=== PATIENT | female | born 1990 | race African-American/Black ===

== ENCOUNTER 2023-03-09 13:01 | Emergency (ER) | payer OTHER ==
[2023-03-09 13:08] VITALS: RESP 20; BMI 28.6
[2023-03-09] MEDS ORDERED: CEPHALEXIN MONOHYDRATE 500 MG CAPSULE (UD) PO ONE (14:44)
[2023-03-09] MEDS ORDERED: SULFAMETHOXAZOLE/TRIMETHOPRIM 800MG/160MG D.S. TABLET PO ONE (14:44)
[2023-03-09] MEDS ORDERED: BACITRACIN 0.9 GM PACKET TP ONE (14:54)
[2023-03-09 14:55] VITALS: BP 118/85; PULSE 77; TEMP 98.4
[2023-03-09] MEDS ORDERED: BACITRACIN ZINC 15 GM TUBE TOPICAL OINTMENT ONE (14:58)
[2023-03-09] MEDS ORDERED: CEPHALEXIN MONOHYDRATE 500 MG CAPSULE (UD) ONE (14:58)
[2023-03-09] MEDS ORDERED: SULFAMETHOXAZOLE/TRIMETHOPRIM 800MG/160MG D.S. TABLET ONE (14:58)
== END 2023-03-09 15:00 | disposition home or self-care (01) ==
LOC: JER 13:01 → JERFT 13:01
PROC: 0H9LXZZ Drainage of Left Lower Leg Skin, External Approach (ICD-10-PCS; principal; 2023-03-09)
DX: L02.416 Cutaneous abscess of left lower limb (principal)
CPT/HCPCS: 99283-25

== ENCOUNTER 2023-04-07 14:22 | Emergency (ER) | payer OTHER ==
[2023-04-07 14:31] VITALS: BP 128/89; PULSE 81; RESP 20; TEMP 98.7; BMI 27.7
== END 2023-04-07 15:38 | disposition home or self-care (01) ==
LOC: JERFT 14:22
DX: H92.03 Otalgia, bilateral (principal); H66.93 Otitis media, unspecified, bilateral
CPT/HCPCS: 99283-25

== ENCOUNTER 2023-07-27 07:44 | Emergency (ER) | payer OTHER ==
[2023-07-27 07:53] VITALS: BP 132/86; PULSE 91; RESP 18; TEMP 98.8; BMI 29.0
[2023-07-27] MEDS ORDERED: ACETAMINOPHEN 325 MG TABLET (FP) ONE (08:39)
[2023-07-27] MEDS ORDERED: KETOROLAC TROMETHAMINE 15 MG/ML VIAL ONE (08:39)
[2023-07-27] MEDS: KETOROLAC TROMETHAMINE 15 MG/ML VIAL IM ONE (08:45)
[2023-07-27] MEDS: ACETAMINOPHEN 500 MG TABLET (FP) PO ONE (08:46)
[2023-07-27] MEDS ORDERED: LIDOCAINE 4% PATCH TP ONE (10:02)
[2023-07-27] MEDS: LIDOCAINE 4% PATCH TP ONE (10:10)
[2023-07-27] MEDS ORDERED: LIDOCAINE PATCH REMOVAL MC SCH (22:00)
== END 2023-07-27 10:51 | disposition home or self-care (01) ==
LOC: JERFT 07:44
PROC: 3E0133Z Introduction of Anti-inflammatory into Subcutaneous Tissue, Percutaneous Approach (ICD-10-PCS; principal; 2023-07-27)
DX: M54.6 Pain in thoracic spine (principal); M54.2 Cervicalgia
CPT/HCPCS: 71046-TC-FY; 99284-25

== ENCOUNTER 2023-09-02 19:48 | Emergency (ER) | payer OTHER ==
[2023-09-02 19:57] VITALS: BP 160/96; PULSE 73; RESP 18; TEMP 98.1; BMI 27.2
[2023-09-02] MEDS ORDERED: CYCLOBENZAPRINE HCL 10 MG TABLET (FP) ONE (21:06)
[2023-09-02] MEDS ORDERED: predniSONE 20 MG TABLET (UD) ONE (21:06)
[2023-09-02] MEDS ORDERED: KETOROLAC TROMETHAMINE 30 MG/1 ML VIAL ONE (21:06)
[2023-09-02] MEDS: KETOROLAC TROMETHAMINE 30 MG/1 ML VIAL IM ONE (21:11)
[2023-09-02] MEDS: predniSONE 20 MG TABLET (UD) PO ONE (21:11)
[2023-09-02] MEDS: CYCLOBENZAPRINE HCL 10 MG TABLET (FP) PO ONE (21:12)
== END 2023-09-02 22:54 | disposition home or self-care (01) ==
LOC: JERFT 19:48
PROC: 3E0133Z Introduction of Anti-inflammatory into Subcutaneous Tissue, Percutaneous Approach (ICD-10-PCS; principal; 2023-09-02)
DX: M54.2 Cervicalgia (principal); M25.512 Pain in left shoulder
CPT/HCPCS: 73030-TC-LT-FY; 99284-25

== ENCOUNTER 2024-01-13 11:11 | Emergency (ER) | payer OTHER ==
[2024-01-13 11:17] VITALS: BP 123/84; PULSE 84; RESP 18; TEMP 97.6; BMI 30.4
[2024-01-13 12:46] LABS: BASO % 0.7 % (0-2.0); EOS % 0.8 % (0-4.5); HEMATOCRIT 37.2 % (32.4-45.2); HEMOGLOBIN 12.1 GM/dL (10.7-15.3); LYMPH % 36.4 % (8-40); MCH 25.9 pg (25.7-33.7); MCHC 32.6 g/dl (32.0-36.0); MEAN CELL VOLUME 79.5 fl (80-96); MEAN PLT VOLUME 9.1 fl (7.5-11.1); MONO % 4.3 % (3.8-10.2); NEUT % 57.8 % (42.8-82.8); PLATELET COUNT 306 10^3/uL (134-434); RBC 4.68 M/mm3 (3.60-5.2); RDW 16.1 % (11.6-15.6); WHITE BLOOD COUNT 5.1 K/mm3 (4.0-10.0)
[2024-01-13 12:47] LABS: PH,URINE 6.5 (5.0-8.0); URINE APPEARANCE CLEAR; URINE BILIRUBIN NEGATIVE (NEGATIVE); URINE COLOR YELLOW; URINE GLUCOSE (UA) NEGATIVE (NEGATIVE); URINE KETONE NEGATIVE (NEGATIVE); URINE LEUK ESTERASE NEGATIVE (NEGATIVE); URINE NITRITE NEGATIVE (NEGATIVE); URINE PROTEIN NEGATIVE (NEGATIVE); URINE UROBILINOGEN 0.2 mg/dL (0.2-1.0)
[2024-01-13 12:49] LABS: HCG,QUALITATIVE URINE Negative
[2024-01-13 13:20] LABS: POTASSIUM 4.7 mmol/L (3.5-5.1)
[2024-01-13 13:21] LABS: CALCIUM 9.6 mg/dL (8.5-10.1)
[2024-01-13 13:22] LABS: ALBUMIN 3.9 g/dl (3.4-5.0)
[2024-01-13 13:25] LABS: CREATININE 0.7 mg/dL (0.55-1.3)
[2024-01-13 13:27] LABS: BILIRUBIN,TOTAL 0.2 mg/dL (0.2-1)
[2024-01-13 14:10] LABS: HIV INTERPRETATION NEGATIVE (NEGATIVE)
== END 2024-01-13 14:13 | disposition home or self-care (01) ==
LOC: JER 11:11
DX: M79.10 Myalgia, unspecified site (principal); R42 Dizziness and giddiness; B34.9 Viral infection, unspecified; Z20.822 Contact with and (suspected) exposure to COVID-19
CPT/HCPCS: 0241U-QW; 36415; 80053; 81003; 84443; 84703; 85025; 86803; 87086; 87186; 87389; 93005; 93010; 99284-25